=== PATIENT | female | born 1995 | race Asian ===

== ENCOUNTER 2024-05-20 11:02 | Outpatient (REF) | payer OTHER, SELFPAY ==
--- NOTE | ~2024-05-20 | US_ITS ---
EXAMINATION: US PELVIS CLINICAL INFORMATION: Irregular and prolonged periods COMPARISON: None available. TECHNIQUE: Ultrasound of the pelvis is performed using both transabdominal and transvaginal transducers along with Doppler. Transvaginal imaging is performed due to inadequate visualization transabdominally. FINDINGS: Uterus: The uterus is anteverted and measures 6.3 x 3.6 x 4.5 cm. The double wall endometrial thickness is 7.5 mm. The uterus is smooth in contour and has normal myometrial echogenicity. No visible fibroid. Adnexa: Both ovaries are visualized. There is normal color flow to the adnexa. There is no ovarian torsion. There is no pelvic ascites or fluid collection. Multiple subcortical small cysts are present around the ovaries suggestive of a string of pearls. Right ovary measures 4.0 x 2.3 x 2.1 cm for a volume of 10 cc. Left ovary measures 4.1 x 1.6 x 2.6 cm for a volume of 8.8 cc. US/US pelvic and transvaginal IMPRESSION: Multiple small subcortical cysts are present around the ovaries suggestive of a string of pearls. This can be seen with polycystic ovarian syndrome. Electronically signed by: Brad Damian MD 05/21/2024 12:06 AM JULIANNA
== END 2024-05-20 11:03 | disposition home or self-care (01) ==
LOC: HO.UMASIMG 11:02
PROVIDERS: Visit Provider Nurse Practitioner Women's Health
DX: N92.6 Irregular menstruation, unspecified (principal)
CPT/HCPCS: 76830; 76856